=== PATIENT | male | born 1990 | race American Indian/Alaskan Native ===

== ENCOUNTER 2017-03-12 11:07 | Emergency (ER) | payer MEDICAID, OTHER ==
[2017-03-12 11:07] VITALS: BMI 23.3
[2017-03-12 11:11] VITALS: BP 135/86; PULSE 74; RESP 20; TEMP 98.8; O2SAT 98
--- NOTE | 2017-03-12 11:23 | ED PDOC ---
HPI: Psych/Substance Abuse Time Seen by Provider: 03/12/17 11:14 Chief Complaint (Nursing): Psychiatric Evaluation Chief Complaint (Provider): Crisis eval History Per: Patient Modifying Factor(s): Alcohol Additional Complaint(s): 27 yo male, PMH of HIV, Depression and Anxiety, presents to ED feeling very depressed and "like he can't handle life anymore." Pt had a recent break up with his boyfriend, has been having family trouble as well and is overall feeling very overwhelmed. Pt denies any suicidal plan. Denies any homicidal ideations. No physical complaints. (+) AOB. Pt admits to drinking today Past Medical History Reviewed: Nursing Documentation, Vital Signs Vital Signs: Last Vital Signs Temp 98.8 F 03/12/17 11:10 Pulse 74 03/12/17 11:10 Resp 20 03/12/17 11:10 BP 135/86 03/12/17 11:10 Pulse Ox 98 03/12/17 11:10 - Medical History PMH: Dementia, Depression, HIV, Migraine, Multiple Sclerosis, Parkinson's Disease, Seizures, TIA Denies: Alzheimer's Disease, Anemia, Anxiety, Asthma, Atrial Fibrillation, Bipolar Disorder, Bronchitis, Cardia Arrhythmia, CHF, COPD, Diabetes, Emphysema , Hepatitis, HTN, Hypercholesterolemia, Hyperthyroidism, Hypothyroidism, Kidney Stones, Mitral Valve Prolapse, Peripheral Edema, Personality Disorder, Pneumonia , Pulmonary Embolism, Chronic Kidney Disease, Schizophrenia, Sickle Cell Disease , Sexually Transmitted Disease, Sleep Apnea - Surgical History Surgical History: Denies: Appendectomy, CABG, Carotid Endarterectomy, Cholecystectomy, Coronary Stent, Pacemaker, Tonsillectomy - Family History Family History: States: Unknown Family Hx - Living Arrangements Living Arrangements: With Family - Social History Current smoker - smoking cessation education provided: No Alcohol: Social Drugs: Cannabis - Immunization History Hx Tetanus Toxoid Vaccination: No Hx Influenza Vaccination: No Hx Pneumococcal Vaccination: No - Home Medications Home Medications: Ambulatory Orders Medication Instructions Recorded Emtricitabine/Tenofovir Diso 1 tab PO DAILY 07/05/15 [Truvada 200 MG-300 MG] Ritonavir [Norvir] 100 mg PO DAILY 07/05/15 Darunavir [Prezista] 800 mg PO DAILY 09/23/16 Cyclobenzaprine [Cyclobenzaprine 10 mg PO TID #21 tab 07/03/17 HCl] Ibuprofen [Motrin] 600 mg PO Q8 #30 tab 12/24/16 - Allergies Allergies/Adverse Reactions: Allergies Allergy/AdvReac Type Severity Reaction Status Date / Time seasonal Allergy ITCHING Uncoded 03/12/17 11:19 Review of Systems ROS Statement: Except As Marked, All Systems Reviewed And Found Negative Physical Exam - Reviewed Nursing Documentation Reviewed: Yes Vital Signs Reviewed: Yes - Physical Exam Appears: Positive for: Well, Non-toxic, No Acute Distress Head Exam: Positive for: ATRAUMATIC, NORMAL INSPECTION, NORMOCEPHALIC Skin: Positive for: Normal Color, Warm, DRY Eye Exam: Positive for: EOMI, Normal appearance, PERRL ENT: Positive for: Normal ENT Inspection Neck: Positive for: Normal, Painless ROM Cardiovascular/Chest: Positive for: Regular Rate, Rhythm Respiratory: Positive for: CNT, Normal Breath Sounds Gastrointestinal/Abdominal: Positive for: Normal Exam, Bowel Sounds, Soft Back: Positive for: Normal Inspection Extremity: Positive for: Normal ROM Neurologic/Psych: Positive for: Alert, Oriented - Laboratory Results Result Diagrams: 03/12/17 11:39 03/12/17 11:39 - ECG O2 Sat by Pulse Oximetry: 98 Medical Decision Making Medical Decision Making: Labs resulted and reviewed with Pt who demonstrated full understanding. EYOH 225 , Pt to undergo crisis eval at 1400 On re-eval, pt reports nausea, medicated with Zofran 4 mg IM. 1420: P underwent crisis esval, see note. Stable for discharge Disposition - Clinical Impression Clinical Impression: Depression, Alcohol-induced mood disorder - Patient ED Disposition Is Patient to be Admitted: No - Disposition Disposition: Routine/Home Disposition Time: 15:22 Condition: STABLE Instructions: Alcohol Intoxication (ED), Depression (DC) Forms: [facility] (Maltese) - POA Present On Arrival: None
[2017-03-12 11:49] LABS: BASO # 0.1 K/uL (0.0-0.2); BASO % 0.9 % (0.0-2.0); EOS # 0.2 K/uL (0.0-0.7); EOS % 3.2 % (0.0-4.0); HEMATOCRIT 45.7 % (35.0-51.0); LYMPH # 1.9 K/uL (1.0-4.3); LYMPH % 33.5 % (20.0-40.0); MEAN CELL VOLUME 92.2 fl (80.0-94.0); MEAN CORPUSCULAR HEMOGLOBIN 31.2 pg (27.0-31.0); MEAN CORPUSCULAR HGB CONC 33.9 g/dL (33.0-37.0); MEAN PLATELET VOLUME 10.7 fl (7.2-11.7); MONO # 0.4 K/uL (0.0-0.8); MONO % 7.4 % (0.0-10.0); NEUT # 3.2 K/uL (1.8-7.0); NRBC % 0.2 % (0.0-0.0); RED CELL DISTRIBUTION WIDTH 14.4 % (11.5-14.5); WHITE BLOOD COUNT 5.8 K/uL (4.8-10.8)
[2017-03-12 11:58] LABS: ALB/GLOB RATIO 1.3 (1.0-2.1); ALCOHOL SERUM 225 mg/dl (0-10); ALKALINE PHOSPHATASE 67 U/L (38-126); ALT/SGPT 45 U/L (21-72); AST/SGOT 37 U/L (17-59); BILIRUBIN,TOTAL 0.4 mg/dl (0.2-1.3); BLOOD UREA NITROGEN 9 mg/dl (9-20); CALCIUM 9.5 mg/dL (8.4-10.2); CARBON DIOXIDE 30 mmol/L (22-30); CHLORIDE 102 mmol/L (98-107); GFR AFRICAN-AMERICAN > 60; GLUCOSE,RANDOM 100 mg/dL (75-110); POTASSIUM 4.1 MMOL/L (3.6-5.0); SODIUM 145 mmol/l (132-148); TOTAL PROTEIN 8.1 G/DL (6.3-8.2)
[2017-03-12 12:51] LABS: RBC URINE < 1 /hpf (0-3); URINE BILIRUBIN NEGATIVE (NEGATIVE); URINE BLOOD NEGATIVE (NEGATIVE); URINE COLOR YELLOW (YELLOW); URINE GLUCOSE (UA) NEG (Normal); URINE KETONE NEGATIVE (NEGATIVE); URINE LEUKOCYTE ESTERASE NEG Leu/uL (Negative); URINE PROTEIN NEGATIVE (NEGATIVE); URINE UROBILINOGEN 0.2-1.0 mg/dL (0.2-1.0); WBC URINE 1 /hpf (0-5)
== END 2017-03-12 15:22 | disposition home or self-care (01) ==
LOC: H.ER 11:07
DX: F32.9 Major depressive disorder, single episode, unspecified (principal); F10.94 Alcohol use, unspecified with alcohol-induced mood disorder; F03.90 Unspecified dementia, unspecified severity, without behavioral disturbance, psychotic disturbance, mood disturbance, and anxiety; G20 Parkinson's disease; G35 Multiple sclerosis; Z86.73 Personal history of transient ischemic attack (TIA), and cerebral infarction without residual deficits; B20 Human immunodeficiency virus [HIV] disease
CPT/HCPCS: 80053; 80320; 80324; 80329; 80345; 80346; 80349; 80353; 80358; 80361; 81003; 83992; 85025; 96372; 99282; J2405

== ENCOUNTER 2017-11-05 14:37 | Inpatient (IN) | payer MEDICAID, OTHER ==
[2017-11-05 14:37] VITALS: BMI 23.3
[2017-11-05 17:10] LABS: HEMOGLOBIN 15.7 g/dL (12.0-18.0); MEAN CELL VOLUME 92.2 fl (80.0-94.0); MEAN CORPUSCULAR HEMOGLOBIN 31.5 pg (27.0-31.0); MEAN CORPUSCULAR HGB CONC 34.1 g/dL (33.0-37.0); RBC 4.99 Mil/uL (4.40-5.90); RED CELL DISTRIBUTION WIDTH 13.7 % (11.5-14.5)
[2017-11-05 17:28] LABS: ALB/GLOB RATIO 1.2 (1.0-2.1); ALBUMIN 4.3 g/dL (3.5-5.0); ALT/SGPT 42 U/L (21-72); AST/SGOT 27 U/L (17-59); BLOOD UREA NITROGEN 13 mg/dl (9-20); CALCIUM 9.5 mg/dL (8.4-10.2); GFR AFRICAN-AMERICAN > 60; GFR NON-AFRICAN AMERICAN > 60
--- NOTE | 2017-11-05 17:58 | ED PDOC ---
HPI: Psych/Substance Abuse Time Seen by Provider: 11/05/17 15:11 Chief Complaint (Nursing): Psychiatric Evaluation Chief Complaint (Provider): Depression, SI History Per: Patient History/Exam Limitations: no limitations Onset/Duration Of Symptoms: Days Current Symptoms Are (Timing): Still Present Additional Complaint(s): 27 yo male with history of depression presents with SI. Pt states it has been a few days. PT states his plan is to take his pill. Past Medical History Reviewed: Historical Data, Nursing Documentation, Vital Signs Vital Signs: Last Vital Signs Temp 98.8 F 11/05/17 14:45 Pulse 112 H 11/05/17 14:45 Resp 18 11/05/17 14:45 BP 121/71 11/05/17 14:45 Pulse Ox 99 11/05/17 14:45 - Medical History PMH: Dementia, Depression, HIV, Migraine, Multiple Sclerosis, Parkinson's Disease, Seizures, TIA Denies: Alzheimer's Disease, Anemia, Anxiety, Asthma, Atrial Fibrillation, Bipolar Disorder, Bronchitis, Cardia Arrhythmia, CHF, COPD, Diabetes, Emphysema , Hepatitis, HTN, Hypercholesterolemia, Hyperthyroidism, Hypothyroidism, Kidney Stones, Mitral Valve Prolapse, Peripheral Edema, Personality Disorder, Pneumonia , Pulmonary Embolism, Chronic Kidney Disease, Schizophrenia, Sickle Cell Disease , Sexually Transmitted Disease, Sleep Apnea - Surgical History Surgical History: Denies: Appendectomy, CABG, Carotid Endarterectomy, Cholecystectomy, Coronary Stent, Pacemaker, Tonsillectomy - Family History Family History: States: Unknown Family Hx - Living Arrangements Living Arrangements: With Family - Social History Current smoker - smoking cessation education provided: No - Immunization History Hx Tetanus Toxoid Vaccination: No Hx Influenza Vaccination: No Hx Pneumococcal Vaccination: No - Home Medications Home Medications: Ambulatory Orders Medication Instructions Recorded Emtricitabine/Tenofovir Diso 1 tab PO DAILY 07/05/15 [Truvada 200 MG-300 MG] Ritonavir [Norvir] 100 mg PO DAILY 07/05/15 Darunavir [Prezista] 800 mg PO DAILY 09/23/16 Cyclobenzaprine [Cyclobenzaprine 10 mg PO TID #21 tab 12/24/16 HCl] Ibuprofen [Motrin] 600 mg PO Q8 #30 tab 12/24/16 Polyethylene Glycol 3350 [Miralax] 17 gm PO DAILY #1 bottle 07/31/17 - Allergies Allergies/Adverse Reactions: Allergies Allergy/AdvReac Type Severity Reaction Status Date / Time seasonal Allergy Intermediate ITCHING Uncoded 07/31/17 03:24 Review of Systems ROS Statement: Except As Marked, All Systems Reviewed And Found Negative Constitutional: Negative for: Fever, Chills Respiratory: Negative for: Cough Gastrointestinal: Negative for: Nausea, Vomiting, Abdominal Pain Psych: Positive for: Suicidal ideation. Negative for: Psychosis Physical Exam - Reviewed Nursing Documentation Reviewed: Yes Vital Signs Reviewed: Yes - Physical Exam Appears: Positive for: Well, Non-toxic, No Acute Distress Head Exam: Positive for: ATRAUMATIC, NORMAL INSPECTION, NORMOCEPHALIC Skin: Positive for: Normal Color, Warm, DRY Eye Exam: Positive for: Normal appearance ENT: Positive for: Normal ENT Inspection Neck: Positive for: Normal, Painless ROM Cardiovascular/Chest: Positive for: Regular Rate, Rhythm Respiratory: Positive for: Normal Breath Sounds. Negative for: Accessory Muscle Use, Respiratory Distress Back: Positive for: Normal Inspection Extremity: Positive for: Normal ROM Neurologic/Psych: Positive for: Alert, Oriented - Laboratory Results Result Diagrams: 11/05/17 17:02 11/05/17 17:02 - ECG O2 Sat by Pulse Oximetry: 99 Medical Decision Making Medical Decision Making: Crisis evaluation completed. Labs normal. Disposition - Clinical Impression Clinical Impression: Depression - Patient ED Disposition Is Patient to be Admitted: Yes - Disposition Disposition Time: 18:00 Condition: STABLE Instructions: Depression
[2017-11-05 20:37] LABS: URINE BACTERIA RARE (<OCC); URINE BILIRUBIN NEGATIVE (NEGATIVE); URINE BLOOD NEGATIVE (NEGATIVE); URINE CLARITY SLIGHTY-CLOUDY (Clear); URINE COLOR YELLOW (YELLOW); URINE GLUCOSE (UA) NEG (Normal); URINE LEUKOCYTE ESTERASE NEG Leu/uL (Negative); URINE PROTEIN 30 mg/dL (NEGATIVE); URINE UROBILINOGEN 0.2-1.0 mg/dL (0.2-1.0)
[2017-11-05 20:53] LABS: BARBITURATES, UR NEGATIVE (NEGATIVE); BENZODIAZEPINES, UR NEGATIVE (NEGATIVE); OPIATES, UR NEGATIVE (NEGATIVE); PHENCYCLIDINE, UR NEGATIVE (NEGATIVE)
[2017-11-05] MEDS ORDERED: Magnesium Hydroxide Susp 30 ml UD PO PRN (21:43)
[2017-11-05] MEDS ORDERED: DiphenhydrAMINE 50 mg/ml Inj IM PRN (21:43)
[2017-11-05] MEDS ORDERED: Alum-Mag Hydrox-Simethicone Susp (30 mL) PO PRN (21:43)
--- NOTE | 2017-11-05 21:55 | PCM.BM ---
<MunirasavanaNitonuno Cerda - Last Filed: 11/05/17 21:54> Treatment Plan Problems - Problems identified on initial assessmt Suicidal Ideation Date Initiated: 11/05/17 Time Initiated: 21:54 Assessment reference: NA Status: Active Hopelessness/Helplessness Date Initiated: 11/05/17 Time Initiated: 21:54 Assessment reference: NA Status: Active Treatment assets and liabiliti Patient Assests: cooperative, ADL independent, negotiates basic needs, cognitively intact Patient Liabilities: financial problems, poor support system, substance abuse, medical problems - Milieu Protocol Maintain good personal hygiene: daily Encourage regular showers, daily Remind patient to perform daily oral care, daily Assist patient to perform ADL's Conduct patient checks and document Observation sheet: Q15 minutes Maintain personal safety: every shift Educate patient to report safety concerns to staff, every shift Monitor environment for contraband/sharps Medication safety: Monitor for expected outcome, potential side effects: every shift, Assess barriers to learning: every shift, Assess readiness for medication education: every shift <Charlene Whitney - Last Filed: 11/07/17 15:58> Treatment assets and liabiliti Patient Assests: adapts well, cooperative, educated, insightful (regarding depression ; poor insight into ETOH abuse), resourceful, ADL independent, physically healthy (recently noncompliant with HIV medications), good support system, cognitively intact Patient Liabilities: financial problems, relationship conflicts, substance abuse , medical problems, legal issue Family Contact Family contact: Family has been contacted by patient, Patient declines to allow family contact at present - Outside Agency Agency 1 Agency contact name: [facility] Silverio Raul Agency contact number: [phone] Agency 2 Agency contact name: [facility] Agency contact number: [phone] - Goals for Treatment Patient goals for treatment: Patient to continue stabilization on 3NP through medication management and group/supportive therapy. Patient to be encouraged to attend groups regularly to promote self-awareness, sobriety, and improve insight , compliance, coping skills and self-esteem. Patient to be provided with referral for appropriate level of aftercare to reduce risk of future hospitalizations and ensure safety in the community. Discharge/Continuing Care - Education Needs Education Needs: Patient Medication, Patient Coping Skills, Patient Community resources, Patient Aftercare Safety Plan - Discharge Discharge Criteria: Tolerates medication w/o severe side effects, Free of Suicidal thoughts, Normal sleep pattern, Reduction of target symptoms Discharge to:: Home - Treatment Team Participation Discussed with Family/SO: No Was Patient/Family/SO present at Treatment Team Meeting: Yes <Collin Mcclelland - Last Filed: 11/08/17 17:25> Discharge/Continuing Care - Additional Comments 11/08/17 17:25 Pt was very oppositional about taking medication for an extended period of time. Pt reported that he does not feel his marijuana usage is an issue, but spoke openly about his impulse control regarding alcohol and how his binge drinking exacerbates his depression. <Joceline Huizar - Last Filed: 11/11/17 09:44> - Diagnosis (1) Depression Status: Acute Interventions: pharmacotherapy, psychotherapy 11/11/17 09:44
[2017-11-06] MEDS: Pantoprazole 40 mg EC Tab PO SCH (08:47)
[2017-11-06] MEDS: Multivitamin With Minerals Tab PO SCH (08:47)
[2017-11-06 08:58] LABS: T4 6.22 ug/dl (5.5-11.0)
[2017-11-06] MEDS ORDERED: Multivitamin With Minerals Tab PO SCH (09:00)
--- NOTE | 2017-11-06 14:31 | CP.PCM.HP ---
History of Present Illness - History of Present Illness History of Present Illness: 27 y/o M with a PMHx of HIV infection was brought to our hospital due to suicidal attempt. Pt planned to finish with his life by taking all his medication pills at once, pt was stopped by his friend who made him come to the ER. Last suicidal attempt was in 2015 in which he took all his pills at once, pt was hospitalized and re-stabilized. -Pt reports feeling well, denies headache, fever, dizziness, chest pain, SOB, abdominal pain, nausea, vomiting, change in bowel movement. PMD: Dr Fragoso at [facility]. NKDA Medications: -Prezista 800mg; Norvir 100mg; Truvada 200-300mg DAILY -Protonix 40mg daily, Citalopram 20mg daily; Trazodone 50mg nightly PRN; PMHx: HIV infection dx in 2009, Depression. PSHx: denies FHx: NC SHx: Smokes cannabis almost daily, alcohol daily (~1/2 galon), no tobacco. Denies any other rec drugs. Present on Admission - Present on Admission Any Indicators Present on Admission: No Review of Systems - Constitutional Constitutional: absent: Anorexia, Chills, Daytime Sleepiness - EENT Eyes: absent: Blind Spots, Blurred Vision, Change in Vision Nose/Mouth/Throat: absent: Nasal Congestion, Nasal Discharge - Cardiovascular Cardiovascular: absent: Chest Pain, Chest Pain at Rest, Claudication, Dyspnea, Palpitations - Respiratory Respiratory: absent: Cough, Dyspnea, Hemoptysis - Gastrointestinal Gastrointestinal: absent: Abdominal Pain, Bloating, Change in Bowel Habits, Nausea, Temesmus, Vomiting - Genitourinary Genitourinary: absent: Difficulty Urinating, Dysuria, Urinary Frequency - Musculoskeletal Musculoskeletal: absent: Arthralgias, Atrophy, Back Pain - Neurological Neurological: absent: Confusion, Numbness, Syncope Past Patient History - Infectious Disease Hx of Infectious Diseases: None - Tetanus Immunizations Tetanus Immunization: Unknown - Past Medical History & Family History Past Medical History?: Yes - Past Social History Smoking Status: Light Smoker < 10 Cigarettes Daily - CARDIAC Hx Cardiac Disorders: No - PULMONARY Hx Respiratory Disorders: No - NEUROLOGICAL Hx Neurological Disorder: No - HEENT Hx HEENT Problems: No - RENAL Hx Chronic Kidney Disease: No - ENDOCRINE/METABOLIC Hx Endocrine Disorders: No - HEMATOLOGICAL/ONCOLOGICAL Hx Blood Disorders: Yes (HIV) - INTEGUMENTARY Hx Dermatological Problems: No - MUSCULOSKELETAL/RHEUMATOLOGICAL Hx Musculoskeletal Disorders: No - GASTROINTESTINAL Hx Gastrointestinal Disorders: No - GENITOURINARY/GYNECOLOGICAL Hx Genitourinary Disorders: No - PSYCHIATRIC Hx Substance Use: Yes - SURGICAL HISTORY Hx Surgeries: No - ANESTHESIA Hx Anesthesia: No Hx Anesthesia Reactions: No Hx Malignant Hyperthermia: No Meds Allergies/Adverse Reactions: Allergies Allergy/AdvReac Type Severity Reaction Status Date / Time seasonal Allergy Intermediate ITCHING Uncoded 07/31/17 03:24 Physical Exam - Constitutional Appears: Well, No Acute Distress - Head Exam Head Exam: ATRAUMATIC, NORMAL INSPECTION - Eye Exam Eye Exam: EOMI, Normal appearance - ENT Exam ENT Exam: Mucous Membranes Moist, Normal Exam - Neck Exam Neck exam: Positive for: Full Rom. Negative for: Meningismus - Respiratory Exam Respiratory Exam: Clear to Auscultation Bilateral, NORMAL BREATHING PATTERN - Cardiovascular Exam Cardiovascular Exam: REGULAR RHYTHM, +S1, +S2 - GI/Abdominal Exam GI & Abdominal Exam: Distended, Normal Bowel Sounds, Soft. absent: Guarding, Hernia, Organomegaly, Tenderness - Extremities Exam Extremities exam: Positive for: full ROM, normal inspection. Negative for: calf tenderness, joint swelling - Neurological Exam Neurological exam: Alert, Oriented x3 - Psychiatric Exam Psychiatric exam: Normal Affect Results - Vital Signs Recent Vital Signs: Last Vital Signs Temp 99.0 F 11/06/17 09:00 Pulse 100 H 11/06/17 09:00 Resp 18 11/05/17 21:51 BP 135/79 11/06/17 09:00 Pulse Ox 97 11/05/17 21:25 - Labs Result Diagrams: 11/05/17 17:02 11/05/17 17:02 Labs: Laboratory Results - last 24 hr 11/05/17 11/05/17 11/05/17 17:02 17:02 20:22 WBC 6.0 RBC 4.99 Hgb 15.7 Hct 46.0 MCV 92.2 MCH 31.5 H MCHC 34.1 RDW 13.7 Plt Count 201 Sodium 144 Potassium 3.8 Chloride 102 Carbon Dioxide 22 Anion Gap 24 H BUN 13 Creatinine 1.0 Est GFR ( Amer) > 60 Est GFR (Non-Af Amer) > 60 Random Glucose 90 Hemoglobin A1c Calcium 9.5 Total Bilirubin 0.2 AST 27 ALT 42 Alkaline Phosphatase 63 Total Protein 8.0 Albumin 4.3 Globulin 3.7 Albumin/Globulin Ratio 1.2 Triglycerides Cholesterol LDL Cholesterol Direct HDL Cholesterol Thyroxine (T4) TSH 3rd Generation Urine Color Urine Clarity Urine pH Ur Specific Brutus Urine Protein Urine Glucose (UA) Urine Ketones Urine Blood Urine Nitrate Urine Bilirubin Urine Urobilinogen Ur Leukocyte Esterase Urine RBC (Auto) Urine Microscopic WBC Urine Bacteria Urine Opiates Screen Negative Urine Methadone Screen Negative Ur Barbiturates Screen Negative Ur Phencyclidine Scrn Negative Ur Amphetamines Screen Negative U Benzodiazepines Scrn Negative U Oth Cocaine Metabols Negative U Cannabinoids Screen Negative Alcohol, Quantitative 117 H 11/05/17 11/06/17 11/06/17 20:22 08:12 08:12 WBC RBC Hgb Hct MCV MCH MCHC RDW Plt Count Sodium Potassium Chloride Carbon Dioxide Anion Gap BUN Creatinine Est GFR ( Amer) Est GFR (Non-Af Amer) Random Glucose Hemoglobin A1c 5.2 Calcium Total Bilirubin AST ALT Alkaline Phosphatase Total Protein Albumin Globulin Albumin/Globulin Ratio Triglycerides 143 D Cholesterol 157 LDL Cholesterol Direct 78 HDL Cholesterol 49 Thyroxine (T4) 6.22 TSH 3rd Generation 1.41 Urine Color Yellow Urine Clarity Slighty-cloudy Urine pH 6.0 Ur Specific Brutus 1.025 Urine Protein 30 Urine Glucose (UA) Neg Urine Ketones Negative Urine Blood Negative Urine Nitrate Negative Urine Bilirubin Negative Urine Urobilinogen 0.2-1.0 Ur Leukocyte Esterase Neg Urine RBC (Auto) 3 Urine Microscopic WBC < 1 Urine Bacteria Rare Urine Opiates Screen Urine Methadone Screen Ur Barbiturates Screen Ur Phencyclidine Scrn Ur Amphetamines Screen U Benzodiazepines Scrn U Oth Cocaine Metabols U Cannabinoids Screen Alcohol, Quantitative Assessment & Plan - Assessment and Plan (Free Text) Assessment: 27 y/o M with a PMHx of depression and HIV infection admitted for suicidal ideation. Plan: Depression/Alcohol Abuse/Cannabis Use -C/W psychiatry team management HIV controlled -CD4 count 1,571 -HIV VL 2.26 -Pt does not meet AIDS criteria -C/W home meds.
--- NOTE | 2017-11-06 14:42 | CP.PCM.CON ---
History of Present Illness - History of Present Illness History of Present Illness: 27 y/o M with a PMHx of HIV infection was brought to our hospital due to suicidal attempt. Pt planned to finish with his life by taking all his medication pills at once, pt was stopped by his friend who made him come to the ER. Last suicidal attempt was in 2015 in which he took all his pills at once, pt was hospitalized and re-stabilized. -Pt reports feeling well, denies headache, fever, dizziness, chest pain, SOB, abdominal pain, nausea, vomiting, change in bowel movement. PMD: Dr Fragoso at [facility]. NKDA Medications: -Prezista 800mg; Norvir 100mg; Truvada 200-300mg DAILY -Protonix 40mg daily, Citalopram 20mg daily; Trazodone 50mg nightly PRN; -Multivitamins PMHx: HIV infection dx in 2009, Depression. PSHx: denies FHx: NC SHx: Smokes cannabis almost daily, alcohol daily (~1/2 galon), no tobacco. Denies any other rec drugs. Review of Systems - Constitutional Constitutional: absent: Anorexia, Chills, Fever - EENT Eyes: absent: Change in Vision Ears: absent: Ear Pain Nose/Mouth/Throat: absent: Nasal Congestion, Nasal Discharge - Cardiovascular Cardiovascular: absent: Chest Pain, Claudication, Diaphoresis, Palpitations - Respiratory Respiratory: absent: Cough, Dyspnea, Hemoptysis - Genitourinary Genitourinary: absent: Difficulty Urinating, Dysuria, Hematuria, Nocturia - Musculoskeletal Musculoskeletal: absent: Arthralgias, Atrophy, Back Pain Past Patient History - Infectious Disease Hx of Infectious Diseases: None - Tetanus Immunizations Tetanus Immunization: Unknown - Past Medical History & Family History Past Medical History?: Yes - Past Social History Smoking Status: Light Smoker < 10 Cigarettes Daily - CARDIAC Hx Cardiac Disorders: No - PULMONARY Hx Respiratory Disorders: No - NEUROLOGICAL Hx Neurological Disorder: No - HEENT Hx HEENT Problems: No - RENAL Hx Chronic Kidney Disease: No - ENDOCRINE/METABOLIC Hx Endocrine Disorders: No - HEMATOLOGICAL/ONCOLOGICAL Hx Blood Disorders: Yes (HIV) - INTEGUMENTARY Hx Dermatological Problems: No - MUSCULOSKELETAL/RHEUMATOLOGICAL Hx Musculoskeletal Disorders: No - GASTROINTESTINAL Hx Gastrointestinal Disorders: No - GENITOURINARY/GYNECOLOGICAL Hx Genitourinary Disorders: No - PSYCHIATRIC Hx Substance Use: Yes - SURGICAL HISTORY Hx Surgeries: No - ANESTHESIA Hx Anesthesia: No Hx Anesthesia Reactions: No Hx Malignant Hyperthermia: No Meds Allergies/Adverse Reactions: Allergies Allergy/AdvReac Type Severity Reaction Status Date / Time seasonal Allergy Intermediate ITCHING Uncoded 07/31/17 03:24 - Medications Medications: Current Medications Acetaminophen (Tylenol 325mg Tab) 650 mg PO Q4 PRN PRN Reason: pain level 4-7 Al Hydrox/Mg Hydrox/Simethicone (Maalox Plus 30 Ml) 30 ml PO Q4 PRN PRN Reason: Dyspepsia Cyanocobalamin (Vitamin B12 1000 Mcg Tab) 1,000 mcg PO DAILY [facility] Last Admin: 11/06/17 08:48 Dose: 1,000 mcg Diphenhydramine HCl (Benadryl) 50 mg IM Q6 PRN PRN Reason: Extrapyramidal S/S Unable PO Diphenhydramine HCl (Benadryl) 50 mg PO Q6 PRN PRN Reason: Extrapyramidal Symptoms Diphenhydramine HCl (Benadryl) 50 mg PO HS PRN PRN Reason: Sleep Last Admin: 11/05/17 22:41 Dose: 50 mg Folic Acid (Folic Acid) 1 mg PO DAILY [facility] Last Admin: 11/06/17 08:47 Dose: 1 mg Haloperidol (Haldol) 5 mg PO Q4 PRN PRN Reason: Agitation Haloperidol Lactate (Haldol) 5 mg IM Q4 PRN PRN Reason: Agitation, Unable to Take PO Lorazepam (Ativan) 2 mg IM Q4 PRN PRN Reason: Anxiety/Agitation,Unable PO Lorazepam (Ativan) 2 mg PO Q4 PRN PRN Reason: Anxiety/Agitation Lorazepam (Ativan) 1 mg PO TID [facility] Last Admin: 11/06/17 13:11 Dose: 1 mg Magnesium Hydroxide (Milk Of Magnesia) 30 ml PO HS PRN PRN Reason: Constipation Mirtazapine (Remeron) 7.5 mg PO HS [facility] Multivitamins/Minerals (Therapeutic-M Tab) 1 tab PO DAILY [facility] Last Admin: 11/06/17 08:47 Dose: 1 tab Pantoprazole Sodium (Protonix Ec Tab) 40 mg PO DAILY [facility] Last Admin: 11/06/17 08:47 Dose: 40 mg Thiamine HCl (Vitamin B1 Tab) 100 mg PO DAILY [facility] Last Admin: 11/06/17 08:48 Dose: 100 mg Physical Exam - Constitutional Appears: Well, No Acute Distress - Head Exam Head Exam: ATRAUMATIC, NORMAL INSPECTION - Eye Exam Eye Exam: EOMI, Normal appearance - ENT Exam ENT Exam: Mucous Membranes Moist, Normal Exam - Neck Exam Neck exam: Positive for: Normal Inspection - Respiratory Exam Respiratory Exam: Clear to Auscultation Bilateral, NORMAL BREATHING PATTERN - Cardiovascular Exam Cardiovascular Exam: REGULAR RHYTHM, +S1, +S2 - GI/Abdominal Exam GI & Abdominal Exam: Normal Bowel Sounds, Soft. absent: Distended, Firm, Guarding, Tenderness - Extremities Exam Extremities exam: Positive for: full ROM, normal inspection. Negative for: calf tenderness, pedal edema, tenderness - Neurological Exam Neurological exam: Alert, Oriented x3 Results - Vital Signs Recent Vital Signs: Last Vital Signs Temp 99.0 F 11/06/17 09:00 Pulse 100 H 11/06/17 09:00 Resp 18 11/05/17 21:51 BP 135/79 11/06/17 09:00 Pulse Ox 97 11/05/17 21:25 - Labs Result Diagrams: 11/05/17 17:02 11/05/17 17:02 Labs: Laboratory Results - last 24 hr 11/05/17 11/05/17 11/05/17 17:02 17:02 20:22 WBC 6.0 RBC 4.99 Hgb 15.7 Hct 46.0 MCV 92.2 MCH 31.5 H MCHC 34.1 RDW 13.7 Plt Count 201 Sodium 144 Potassium 3.8 Chloride 102 Carbon Dioxide 22 Anion Gap 24 H BUN 13 Creatinine 1.0 Est GFR ( Amer) > 60 Est GFR (Non-Af Amer) > 60 Random Glucose 90 Hemoglobin A1c Calcium 9.5 Total Bilirubin 0.2 AST 27 ALT 42 Alkaline Phosphatase 63 Total Protein 8.0 Albumin 4.3 Globulin 3.7 Albumin/Globulin Ratio 1.2 Triglycerides Cholesterol LDL Cholesterol Direct HDL Cholesterol Thyroxine (T4) TSH 3rd Generation Urine Color Urine Clarity Urine pH Ur Specific Tensed Urine Protein Urine Glucose (UA) Urine Ketones Urine Blood Urine Nitrate Urine Bilirubin Urine Urobilinogen Ur Leukocyte Esterase Urine RBC (Auto) Urine Microscopic WBC Urine Bacteria Urine Opiates Screen Negative Urine Methadone Screen Negative Ur Barbiturates Screen Negative Ur Phencyclidine Scrn Negative Ur Amphetamines Screen Negative U Benzodiazepines Scrn Negative U Oth Cocaine Metabols Negative U Cannabinoids Screen Negative Alcohol, Quantitative 117 H 11/05/17 11/06/17 11/06/17 20:22 08:12 08:12 WBC RBC Hgb Hct MCV MCH MCHC RDW Plt Count Sodium Potassium Chloride Carbon Dioxide Anion Gap BUN Creatinine Est GFR ( Amer) Est GFR (Non-Af Amer) Random Glucose Hemoglobin A1c 5.2 Calcium Total Bilirubin AST ALT Alkaline Phosphatase Total Protein Albumin Globulin Albumin/Globulin Ratio Triglycerides 143 D Cholesterol 157 LDL Cholesterol Direct 78 HDL Cholesterol 49 Thyroxine (T4) 6.22 TSH 3rd Generation 1.41 Urine Color Yellow Urine Clarity Slighty-cloudy Urine pH 6.0 Ur Specific Tensed 1.025 Urine Protein 30 Urine Glucose (UA) Neg Urine Ketones Negative Urine Blood Negative Urine Nitrate Negative Urine Bilirubin Negative Urine Urobilinogen 0.2-1.0 Ur Leukocyte Esterase Neg Urine RBC (Auto) 3 Urine Microscopic WBC < 1 Urine Bacteria Rare Urine Opiates Screen Urine Methadone Screen Ur Barbiturates Screen Ur Phencyclidine Scrn Ur Amphetamines Screen U Benzodiazepines Scrn U Oth Cocaine Metabols U Cannabinoids Screen Alcohol, Quantitative Assessment & Plan - Assessment and Plan (Free Text) Assessment: 27 y/o M with a PMHx of depression and HIV infection admitted for suicidal ideation. Plan: Depression/Alcohol Abuse/Cannabis Use -C/W psychiatry team management HIV controlled -CD4 count 1,571 -HIV VL 2.26 -Pt does not meet AIDS criteria -C/W home meds. - Date & Time Date: 11/06/17 Time: 14:07
--- NOTE | 2017-11-06 15:48 | PCM.PSYCH ---
Initial Psychiatric Evaluation - Initial Psychiatric Evaluation Type of Admission: Voluntary Legal Status: Capacity Chief Complaint (in patient's own words): I am feeling down and I have no hope Patient's Reaction to Hospitalization: pt requested help History of Present Illness and Precipitating Events: pt is 27 ys old male with previous diagnosis of depression and one previous hospitalization, reportedly non compliant with medications but compliant with therapy , pt has been feeling increasingly depressed last month with poor sleep , low energy lack of interest anhedonia on day of hospitalization pt started experiencing suicidal ideation with plan to overdose on HIV medication , came to ER seeking help pt on unit presenting with passive suicidal ideation without active plan, tearful, low energy denied homicidal ideation, denied psychotic symptoms Current Medications: Active Medications Generic Name Dose Route Start Last Admin Trade Name Freq PRN Reason Stop Dose Admin Acetaminophen 650 mg 11/05/17 21:43 Tylenol 325mg Tab PO Q4 PRN pain level 4-7 Al Hydrox/Mg Hydrox/Simethicone 30 ml 11/05/17 21:43 Maalox Plus 30 Ml PO Q4 PRN Dyspepsia Cyanocobalamin 1,000 mcg 11/06/17 09:00 11/06/17 08:48 Vitamin B12 1000 Mcg Tab PO 1,000 mcg DAILY [facility] Administration Diphenhydramine HCl 50 mg 11/05/17 21:43 Benadryl IM Q6 PRN Extrapyramidal S/S Unable PO Diphenhydramine HCl 50 mg 11/05/17 21:43 Benadryl PO Q6 PRN Extrapyramidal Symptoms Diphenhydramine HCl 50 mg 11/05/17 21:46 11/05/17 22:41 Benadryl PO 50 mg HS PRN Administration Sleep Folic Acid 1 mg 11/06/17 09:00 11/06/17 08:47 Folic Acid PO 1 mg DAILY [facility] Administration Haloperidol 5 mg 11/05/17 21:43 Haldol PO Q4 PRN Agitation Haloperidol Lactate 5 mg 11/05/17 21:43 Haldol IM Q4 PRN Agitation, Unable to Take PO Lorazepam 2 mg 11/05/17 21:43 Ativan IM Q4 PRN Anxiety/Agitation,Unable PO Lorazepam 2 mg 11/05/17 21:43 Ativan PO Q4 PRN Anxiety/Agitation Lorazepam 1 mg 11/06/17 09:00 11/06/17 13:11 Ativan PO 1 mg TID JOSEPH Administration Magnesium Hydroxide 30 ml 11/05/17 21:43 Milk Of Magnesia PO HS PRN Constipation Mirtazapine 7.5 mg 11/06/17 22:00 Remeron PO HS [facility] Multivitamins/Minerals 1 tab 11/06/17 09:00 11/06/17 08:47 Therapeutic-M Tab PO 1 tab DAILY [facility] Administration Pantoprazole Sodium 40 mg 11/06/17 09:00 11/06/17 08:47 Protonix Ec Tab PO 40 mg DAILY [facility] Administration Thiamine HCl 100 mg 11/06/17 09:00 11/06/17 08:48 Vitamin B1 Tab PO 100 mg DAILY JOSEPH Administration Past Psychiatric History - Past Psychiatric History Explanation of prior treatment: one previous hospitalization History of ETOH/Drug Use: alcohol use reported Pertinent Medical Hx (Current Medical&Sleep Prob, Allergies): Allergies Allergy/AdvReac Type Severity Reaction Status Date / Time seasonal Allergy Intermediate ITCHING Uncoded 07/31/17 03:24 Emtricitabine/Tenofovir Diso [Truvada 200 MG-300 MG] 1 tab PO DAILY 07/05/15 Ritonavir [Norvir] 100 mg PO DAILY 07/05/15 Darunavir [Prezista] 800 mg PO DAILY 09/23/16 Citalopram Hydrobromide [Celexa] 20 mg PO DAILY 11/05/17 Cyanocobalamin [Vitamin B12 1000 mcg Tab] 1,000 mcg PO DAILY 11/05/17 Folic Acid [Folic Acid] 1 mg PO DAILY 11/05/17 Loratadine/Pseudoephedrine [Claritin-D 24 Hour Tablet] 1 tab PO DAILY 11/05/17 Multivitamin [Multi-Vitamin Daily] 1 tab PO DAILY 11/05/17 Pantoprazole Sodium [Protonix] 40 mg PO DAILY 11/05/17 traZODone [Desyrel] 50 mg PO HS 11/05/17 Mental Status Examination - Personal Presentation Personal Presentation: Looks stated age - Affect Affect: Depressed - Motor Activity Motor Activity: Psychomotor Retardation - Reliability in Providing Information Reliability in Providing Information: Poor, due to altered mood - Speech Speech: Relevant - Mood Mood: Depressed, Anxious - Formal Thought Process Formal Thought Process: Circumstantial - Hallucinations/Delusions Additional comments: denied perceptual disturbances, non elicited - Obsessions/Compulsions Obsessions: No Compulsions: No - Cognitive Functions Orientation: Person, Place Sensorium: Alert Judgement: Imparied, as evidence by: Poor judgement - Risk Risk: Suicidal, Diminished functioning - Strength & Assets Inventory Strength & Assets Inventory: Life experience - Limitations Additional comments: poor compliance DSM 5 DX - DSM 5 DSM 5 Diagnosis: major depression recurrent severe - Recommended/Plan of Treatment Treatment Recommendations and Plan of Treatment: start remeron 7.5mg qhs CBT group and supportive therapy
--- NOTE | 2017-11-06 17:50 | CARD ---
APPROVED REPORT EKG Measurement Heart [id number] <Conclusion> Sinus rhythm with marked sinus arrhythmia Otherwise normal ECG
[2017-11-06] MEDS: Emtricitabine-Tenofovir 200 mg-300 mg Tab PO SCH (18:44)
[2017-11-07 06:16] VITALS: O2SAT 99
[2017-11-07] MEDS: Emtricitabine-Tenofovir 200 mg-300 mg Tab PO SCH (08:55)
[2017-11-07] MEDS: Multivitamin With Minerals Tab PO SCH (08:56)
[2017-11-07] MEDS: Pantoprazole 40 mg EC Tab PO SCH (08:56)
[2017-11-07] MEDS ORDERED: Emtricitabine-Tenofovir 200 mg-300 mg Tab PO SCH (09:00)
--- NOTE | 2017-11-07 14:37 | PCM.PYCHPN ---
Psychiatric Progress Note - Psychiatric Progress Note Patient seen today, length of contact: pt evaluated discussed with team chart reviewed Patient Chief Complaint: I slept better Problems Identified/Issues Discussed: pt evaluated , reported improved sleep with start of remeron, continues to feel down with low energy, motivational therapy provided, discussed with pt the effect of alcohol use on current mental status .pt agreed to start outptient FEDE program on discharge discussed increasing dose of remeron, encouraged to attend groups pt denied any active suicidal ideation on the unit denied perceptual disturbances Medical Problems: one previous hospitalization DSM 5 Symptoms Update: major depression alcohol use disorder Medication Change: Yes (increase remeron) Medical Record Reviewed: Yes Mental Status Examination - Cognitive Function Orientation: Person, Place Attention: WNL Concentration: WNL Association: WNL Fund of Knowledge: WN Decription of patient's judgement and insights: partial insight poor judgment - Mood Mood: Depressed, Anxious - Affect Affect: Constricted, Depressed - Speech Speech: Appropriate - Formal Thought Process Formal Thought Process: Circumstantial Psychotic Thoughts and Behaviors: pt denied perceptual disturbances, non elicited - Suicidal Ideation Suicidal Ideation: No - Homicidal Ideation Homicidal Ideation: No Goal/Treatment Plan - Goal/Treatment Plan Need for Continued Stay: Severe depression anxiety, Discharge may exacerbated symptoms Progress Toward Problem(s) and Goals/Treatment Plan: increase remeron 15mg qhs CBT group and supportive therapy
[2017-11-08] MEDS: Multivitamin With Minerals Tab PO SCH (08:53)
[2017-11-08] MEDS: Emtricitabine-Tenofovir 200 mg-300 mg Tab PO SCH (08:53)
[2017-11-08] MEDS: Pantoprazole 40 mg EC Tab PO SCH (08:54)
--- NOTE | 2017-11-08 14:14 | PCM.PYCHPN ---
Psychiatric Progress Note - Psychiatric Progress Note Patient seen today, length of contact: pt evaluated discussed with team chart reviewed Patient Chief Complaint: I am not ready to stop drinking but I need to reduce it Problems Identified/Issues Discussed: pt evaluated , with treatment team reported improved sleep,also reported better mood feeling less depressed motivational therapy provided, discussed with pt the effect of alcohol and cannabis use on current mental status, pt in precontemplation stage, discussed harm reduction therapy , .pt agreed to start outptient FEDE program on discharge no reported side effects of the medications pt denied any active suicidal ideation denied perceptual disturbances Medical Problems: one previous hospitalization DSM 5 Symptoms Update: major depression alcohol use disorder cannabis use disorder Medication Change: No Medical Record Reviewed: Yes Mental Status Examination - Cognitive Function Orientation: Person, Place Attention: WNL Concentration: WNL Association: WNL Fund of Knowledge: WN Decription of patient's judgement and insights: partial insight poor judgment - Mood Mood: Depressed, Anxious - Affect Affect: Constricted, Depressed - Speech Speech: Appropriate - Formal Thought Process Formal Thought Process: Circumstantial Psychotic Thoughts and Behaviors: pt denied perceptual disturbances, non elicited - Suicidal Ideation Suicidal Ideation: No - Homicidal Ideation Homicidal Ideation: No Goal/Treatment Plan - Goal/Treatment Plan Need for Continued Stay: Severe depression anxiety, Discharge may exacerbated symptoms Progress Toward Problem(s) and Goals/Treatment Plan: remeron 15mg qhs CBT, group, motivational and supportive therapy
[2017-11-09] MEDS: Emtricitabine-Tenofovir 200 mg-300 mg Tab PO SCH (09:00)
[2017-11-09] MEDS: Multivitamin With Minerals Tab PO SCH (09:00)
[2017-11-09] MEDS: Pantoprazole 40 mg EC Tab PO SCH (09:01)
--- NOTE | 2017-11-09 18:07 | PCM.PYCHPN ---
Psychiatric Progress Note - Psychiatric Progress Note Patient seen today, length of contact: pt evaluated discussed with team chart reviewed Patient Chief Complaint: came for etoh mood depression currently receiving gradual down taper of lorazepam for etoh protocol, currently asks questions related to treatment and to be decreased from lorazepam pt reports concerns for possibly needing to take upon discharge Problems Identified/Issues Discussed: alteration in mood alteration in coping substance use etoh Medical Problems: per psychiatry per medicine per nursing per social work per chart Diagnostic Results: per chart DSM 5 Symptoms Update: denies s/s with drawal Medication Change: No Medical Record Reviewed: Yes Consults ordered or reviewed: seen by hospitalist [facility] Mental Status Examination - Cognitive Function Orientation: Person, Place Attention: WNL Concentration: WNL Association: WNL Fund of Knowledge: [facility] Decription of patient's judgement and insights: impaired - Mood Mood: Depressed, Anxious Additional comments: reportedly beginning to be less - Affect Affect: Constricted, Depressed - Speech Speech: Appropriate - Formal Thought Process Formal Thought Process: No Impairment, Circumstantial - Suicidal Ideation Suicidal Ideation: No - Homicidal Ideation Homicidal Ideation: No Goal/Treatment Plan - Goal/Treatment Plan Need for Continued Stay: Severe depression anxiety, Discharge may exacerbated symptoms Progress Toward Problem(s) and Goals/Treatment Plan: inpt milieu adjust meds per status will decrease lorazepam per taper psychoeducation related to mediations and working diagnoses need to see assess who pt is when fully off etoh, no pattern of w/d as delayed s/s may occur will continue remeron review with [facility] pt to consider discharge planning in progress Estimated Date of D/C: 11/14/17 - Smoking Cessation Smoking Cessation Initiated: No Reason for not providing: deferred
[2017-11-10 08:35] VITALS: RESP 18
[2017-11-10] MEDS: Multivitamin With Minerals Tab PO SCH (08:39)
[2017-11-10] MEDS: Emtricitabine-Tenofovir 200 mg-300 mg Tab PO SCH (08:39)
[2017-11-10] MEDS: Pantoprazole 40 mg EC Tab PO SCH (08:40)
--- NOTE | 2017-11-10 17:41 | PCM.PYCHPN ---
Psychiatric Progress Note - Psychiatric Progress Note Patient seen today, length of contact: pt evaluated discussed with team chart reviewed Patient Chief Complaint: pt seen in milieu reports depression is stabilzing, appetite is good, does not believe that he is withdrawing-defers desire or need for lorazepan and no longer wishes to take it, pt reports that last night had difficulty sleeping , reflects that in past has responded to trazodone 100mg (had been prescribed 50mg ) , pt reports that is considering vivitrol Problems Identified/Issues Discussed: alteration in mood alteration in coping substance use etoh Medical Problems: per psychiatry per medicine per nursing per social work per chart Diagnostic Results: per chart DSM 5 Symptoms Update: improving mood denial of w/d difficulty sleeping Medication Change: No Medical Record Reviewed: Yes Consults ordered or reviewed: pt seen by hospitalist Mental Status Examination - Cognitive Function Orientation: Person, Place Attention: WNL Concentration: WNL Association: WNL Fund of Knowledge: [facility] Decription of patient's judgement and insights: impaired - Mood Mood: Depressed, Anxious - Affect Affect: Constricted, Depressed - Speech Speech: Appropriate - Formal Thought Process Formal Thought Process: No Impairment, Circumstantial - Suicidal Ideation Suicidal Ideation: No - Homicidal Ideation Homicidal Ideation: No Goal/Treatment Plan - Goal/Treatment Plan Need for Continued Stay: Severe depression anxiety, Discharge may exacerbated symptoms Progress Toward Problem(s) and Goals/Treatment Plan: inpt milieu adjust meds per status will decrease lorazepam per taper psychoeducation related to mediations and working diagnoses need to see assess who pt is when fully off etoh, no pattern of w/d as delayed s/s may occur-pt wishes to not take lorazepam after psychoeducation and vital signs being stable down taper of lorazepam to be discontinued will continue remeron- review that although took 100mg of trazodone (had been prescribed 50mg ) currently taking remeron to trazodone will be prescribed 50mg po hs prn insomnia review possible increased seditive affect with remeron get up [place] precaution dry mouth possible priaprism-get up slowy review with vivitrol pt to consider pharmacy called medications discussed no interaction with protonix and medications for hiv discharge planning in progress Estimated Date of D/C: 11/14/17 - Smoking Cessation Smoking Cessation Initiated: No Reason for not providing: pt
[2017-11-11] MEDS: Pantoprazole 40 mg EC Tab PO SCH (08:21)
[2017-11-11] MEDS: Emtricitabine-Tenofovir 200 mg-300 mg Tab PO SCH (08:21)
[2017-11-11] MEDS: Multivitamin With Minerals Tab PO SCH (08:21)
[2017-11-11 09:12] VITALS: BP 129/76; PULSE 70; TEMP 98.1
--- NOTE | 2017-11-11 10:32 | CP.PCM.PN ---
Subjective - Date & Time of Evaluation Date of Evaluation: 11/11/17 Time of Evaluation: 09:08 - Subjective Subjective: 27 y/o M seen and examined by bedside. Pt reports feeling well. Pt afebrile, tolerating PO with No acute events overnight. Pt denies fever, headache, dizziness, chest pain, SOB, abdominal pain, nausea, change in bowel movement or urinary complaints. Objective - Vital Signs/Intake and Output Vital Signs (last 24 hours): Temp Pulse Resp BP Pulse Ox 98.1 F 70 18 129/76 99 11/11/17 09:00 11/11/17 09:00 11/11/17 09:00 11/11/17 09:00 11/06/17 22:00 - Medications Medications: Current Medications Acetaminophen (Tylenol 325mg Tab) 650 mg PO Q4 PRN PRN Reason: pain level 4-7 Al Hydrox/Mg Hydrox/Simethicone (Maalox Plus 30 Ml) 30 ml PO Q4 PRN PRN Reason: Dyspepsia Cyanocobalamin (Vitamin B12 1000 Mcg Tab) 1,000 mcg PO DAILY [facility] Last Admin: 11/11/17 08:20 Dose: 1,000 mcg Darunavir (Prezista) 800 mg PO DAILY JOSEPH PRN Reason: Protocol Last Admin: 11/11/17 08:22 Dose: 800 mg Diphenhydramine HCl (Benadryl) 50 mg IM Q6 PRN PRN Reason: Extrapyramidal S/S Unable PO Diphenhydramine HCl (Benadryl) 50 mg PO Q6 PRN PRN Reason: Extrapyramidal Symptoms Diphenhydramine HCl (Benadryl) 50 mg PO HS PRN PRN Reason: Sleep Last Admin: 11/10/17 21:08 Dose: 50 mg Emtricitabine/Tenofovir (Truvada 200 Mg-300 Mg) 1 tab PO DAILY JOSEPH PRN Reason: Protocol Last Admin: 11/11/17 08:21 Dose: 1 tab Folic Acid (Folic Acid) 1 mg PO DAILY [facility] Last Admin: 11/11/17 08:21 Dose: 1 mg Haloperidol (Haldol) 5 mg PO Q4 PRN PRN Reason: Agitation Haloperidol Lactate (Haldol) 5 mg IM Q4 PRN PRN Reason: Agitation, Unable to Take PO Lorazepam (Ativan) 2 mg IM Q4 PRN PRN Reason: Anxiety/Agitation,Unable PO Lorazepam (Ativan) 2 mg PO Q4 PRN PRN Reason: Anxiety/Agitation Magnesium Hydroxide (Milk Of Magnesia) 30 ml PO HS PRN PRN Reason: Constipation Mirtazapine (Remeron) 15 mg PO HS [facility] Last Admin: 11/10/17 21:05 Dose: 15 mg Multivitamins/Minerals (Therapeutic-M Tab) 1 tab PO DAILY [facility] Last Admin: 11/11/17 08:21 Dose: 1 tab Oxymetazoline HCl (Nasal Decongestant 15 Ml) 1 spr NS Q12 PRN PRN Reason: Nasal congestion Last Admin: 11/10/17 21:21 Dose: 1 spr Pantoprazole Sodium (Protonix Ec Tab) 40 mg PO DAILY [facility] Last Admin: 11/11/17 08:21 Dose: 40 mg Ritonavir (Norvir) 100 mg PO DAILY JOSEPH PRN Reason: Protocol Last Admin: 11/11/17 08:21 Dose: 100 mg Thiamine HCl (Vitamin B1 Tab) 100 mg PO DAILY [facility] Last Admin: 11/11/17 08:20 Dose: 100 mg Trazodone HCl (Desyrel) 50 mg PO HS PRN PRN Reason: Insomnia - Labs Labs: 11/05/17 17:02 11/05/17 17:02 - Constitutional Appears: Well, No Acute Distress - Head Exam Head Exam: NORMAL INSPECTION - Eye Exam Eye Exam: EOMI, Normal appearance - ENT Exam ENT Exam: Mucous Membranes Moist - Neck Exam Neck Exam: Full ROM - Respiratory Exam Respiratory Exam: Clear to Ausculation Bilateral, NORMAL BREATHING PATTERN - Cardiovascular Exam Cardiovascular Exam: REGULAR RHYTHM, +S1, +S2 - GI/Abdominal Exam GI & Abdominal Exam: Soft, Normal Bowel Sounds. absent: Guarding, Tenderness, Rebound - Extremities Exam Extremities Exam: Full ROM, Normal Inspection - Neurological Exam Neurological Exam: Alert, Awake, Oriented x3 Assessment and Plan - Assessment and Plan (Free Text) Assessment: 27 y/o M with a PMHx of depression and HIV infection admitted for suicidal ideation. Plan: Depression/Alcohol Abuse/Cannabis Use -C/W psychiatry team management HIV controlled -C/W home meds. DVT prophylaxis. -Ambulation encouraged.
--- NOTE | 2017-11-11 11:38 | PCM.PYCHDC ---
Mental Status Examination - Mental Status Examination Orientation: Person, Place, Situation Memory: Intact Mood: Neutral Affect: Broad Speech: Appropriate Attention: WNL Concentration: WNL Association: WNL Fund of Knowledge: WNL Formal Thought Process: No Impairment Description of patient's judgement and insight: partial insight poor judgment Psychotic Thoughts and Behaviors: pt denied perceptual disturbances, non elicited Suicidal Ideation: No Current Homicidal Ideation?: No Discharge Summary - Discharge Note Reason for Hospitalization: pt is 27 ys old male with previous diagnosis of depression and one previous hospitalization, reportedly non compliant with medications but compliant with therapy , pt has been feeling increasingly depressed last month with poor sleep , low energy lack of interest anhedonia on day of hospitalization pt started experiencing suicidal ideation with plan to overdose on HIV medication , came to ER seeking help pt on unit presenting with passive suicidal ideation without active plan, tearful, low energy denied homicidal ideation, denied psychotic symptoms Consultations:: List each consultation separately and include: 1. Reason for request. 2. Findings. 3. Follow-up Summary of Hospital Course include:: 1. Description of specific treatment plan utilized for patients during their course of treatmen. 2. Summarize the time- course for resolution of acute symptoms and/or regressed behaviors. 3. Describe issues identified and worked on during hospitalization. 4. Describe medication utilized. 5. Describe medical problems identified and treated. 6. Reassessment of suicide risk Summary of Hospital Course: pt on admission presented with depressed mood poor appetite and insomnia, pt was started on remeron 7.5mg qnd was uptitrated to 15mg qhs motivational therapy provided in reference to cannabis and alcohol abuse, pt was advised about the maintenance treament available including vivitrol shot pt gradually presented with brighter mood and affect, no reported side effects of medications on discharge, mental status was stable pt denied any current suicidal or homicidal ideation follow up was arranged by social science teacher at [employer] outpatient [facility]/ [employer] - Diagnosis (1) Depression Current Visit: Yes Status: Acute Comment: psyche is managing - Final Diagnosis (DSM 5) Condition upon Discharge: STABLE DSM 5: major depression recurrent severe without psychotic features alcohol use disorder cannabis use disorder Disposition: HOME/ ROUTINE Prescriptions/Medication Reconciliation: Mirtazapine [Remeron] 15 mg PO HS 30 Days #30 tab traZODone [Desyrel] 50 mg PO HS PRN 30 Days #30 tab PRN Reason: Insomnia - Antipsychotic Medications Pt discharged on 2 or more routine antipsychotic medications: No
== END 2017-11-11 15:23 | disposition home or self-care (01) | DRG 430 ==
LOC: H.ER 14:37 → H.ERHOLD 17:58 → H.PSYCH 21:42
PROVIDERS: ADMIT Psychiatry & Neurology Psychiatry; ATTEND Psychiatry & Neurology Psychiatry
PROC: GZHZZZZ Group Psychotherapy (ICD-10-PCS; principal; 2017-11-06)
PROC: GZ51ZZZ Individual Psychotherapy, Behavioral (ICD-10-PCS; 2017-11-06)
DX: F33.2 Major depressive disorder, recurrent severe without psychotic features (principal); G35 Multiple sclerosis; R56.9 Unspecified convulsions; F03.90 Unspecified dementia, unspecified severity, without behavioral disturbance, psychotic disturbance, mood disturbance, and anxiety; G20 Parkinson's disease; G47.00 Insomnia, unspecified; Z86.73 Personal history of transient ischemic attack (TIA), and cerebral infarction without residual deficits; Z87.891 Personal history of nicotine dependence; Z91.14 Patient's other noncompliance with medication regimen; G43.909 Migraine, unspecified, not intractable, without status migrainosus; R45.851 Suicidal ideations; R63.0 Anorexia; Z21 Asymptomatic human immunodeficiency virus [HIV] infection status; F10.10 Alcohol abuse, uncomplicated; F12.90 Cannabis use, unspecified, uncomplicated; Y90.5 Blood alcohol level of 100-119 mg/100 ml

== ENCOUNTER 2018-03-31 12:31 | Emergency (ER) | payer OTHER ==
[2018-03-31 12:31] VITALS: BMI 23.3
[2018-03-31 13:26] VITALS: BP 126/87; PULSE 70; RESP 18; TEMP 98.7; O2SAT 100
--- NOTE | 2018-03-31 13:54 | ED PDOC ---
HPI: General Adult Time Seen by Provider: 03/31/18 13:53 Chief Complaint (Nursing): Abnormal Skin Integrity Chief Complaint (Provider): itchiness History Per: Patient Additional Complaint(s): 28-year-old male presents with generalized itchiness for 3 days. Patient denies any rash or lesions. He states the last time he had symptoms like this he was treated for scabies. Patient denies any known exposure to any allergens. No associated fever or chills. Patient denies recent change in lotions, soaps, detergents, medications, vitamins or supplements. Patient states hands and feet are the most pruritic and he states the symptoms are worse at night. MD: Dr. Fragoso Past Medical History Reviewed: Historical Data, Nursing Documentation, Vital Signs Vital Signs: Last Vital Signs Temp 98.7 F 03/31/18 13:23 Pulse 70 03/31/18 13:23 Resp 18 03/31/18 13:23 BP 126/87 03/31/18 13:23 Pulse Ox 100 03/31/18 13:23 - Medical History PMH: Depression, HIV, Migraine - Surgical History Surgical History: No Surg Hx - Family History Family History: States: No Known Family Hx - Living Arrangements Living Arrangements: With Family - Social History Current smoker - smoking cessation education provided: No Alcohol: None Drugs: Denies - Home Medications Home Medications: Ambulatory Orders Medication Instructions Recorded Emtricitabine/Tenofovir Diso 1 tab PO DAILY 07/05/15 [Truvada 200 MG-300 MG] Ritonavir [Norvir] 100 mg PO DAILY 07/05/15 Darunavir [Prezista] 800 mg PO DAILY 09/23/16 Cyanocobalamin [Vitamin B12 1000 1,000 mcg PO DAILY 11/05/17 mcg Tab] Folic Acid 1 mg PO DAILY 11/05/17 Loratadine/Pseudoephedrine 1 tab PO DAILY 11/05/17 [Claritin-D 24 Hour Tablet] Multivitamin [Multi-Vitamin Daily] 1 tab PO DAILY 11/05/17 Pantoprazole Sodium [Protonix] 40 mg PO DAILY 11/05/17 Folic Acid 1 mg PO DAILY #0 tab 11/11/17 Mirtazapine [Remeron] 15 mg PO HS 30 Days #30 tab 11/11/17 Multimineral/Multivitamin 1 tab PO DAILY tab 11/11/17 [Therapeutic-M Tab] Thiamine [Vitamin B1 Tab] 100 mg PO DAILY tab 11/11/17 traZODone [Desyrel] 50 mg PO HS PRN 30 Days #30 tab 11/11/17 Permethrin 1% Kit [Nix Complete 59 ml TP ONCE #1 bottle 03/31/18 Lice Elimination Kit 1%] hydrOXYzine HCl [Atarax] 25 mg PO Q6H PRN #30 tab 03/31/18 - Allergies Allergies/Adverse Reactions: Allergies Allergy/AdvReac Type Severity Reaction Status Date / Time seasonal Allergy Intermediate ITCHING Uncoded 07/31/17 03:24 Review of Systems ROS Statement: Except As Marked, All Systems Reviewed And Found Negative Constitutional: Negative for: Fever Skin: Positive for: Other (itchiness to skin) Physical Exam - Reviewed Nursing Documentation Reviewed: Yes Vital Signs Reviewed: Yes - Physical Exam Appears: Positive for: Well, Non-toxic, No Acute Distress Skin: Positive for: Normal Color. Negative for: Rash Eye Exam: Positive for: Normal appearance Cardiovascular/Chest: Positive for: Regular Rate, Rhythm Respiratory: Positive for: Normal Breath Sounds. Negative for: Wheezing, Respiratory Distress Extremity: Positive for: Normal ROM Neurologic/Psych: Positive for: Alert, Oriented - ECG O2 Sat by Pulse Oximetry: 100 Pulse Ox Interpretation: Normal Medical Decision Making Medical Decision Makin-year-old male with generalized pruritus. Patient is well-appearing, no rashes noted. Patient states the last time he had generalized pruritus he was treated for scabies. Prescription for permethrin cream provided along with prescription for Atarax. Patient was advised to follow up with PMD in 2-3 days. Disposition - Clinical Impression Clinical Impression: Pruritus - Patient ED Disposition Is Patient to be Admitted: No Counseled Patient/Family Regarding: Diagnosis, Need For Followup, Rx Given - Disposition Referrals: Deniz Fragoso MD [Family Provider] - Disposition: Routine/Home Disposition Time: 15:17 Condition: STABLE Additional Instructions: Take prescription meds as directed. Follow-up with primary doctor or dust collector attendant for any persistent symptoms. Prescriptions: hydrOXYzine HCl [Atarax] 25 mg PO Q6H PRN #30 tab PRN Reason: Itching / Pruritus Permethrin 1% Kit [Nix Complete Lice Elimination Kit 1%] 59 ml TP ONCE #1 bottle Instructions: Itchy Skin Forms: [facility] (Slovenian)
== END 2018-03-31 15:26 | disposition home or self-care (01) ==
LOC: H.ER 12:31
DX: L29.9 Pruritus, unspecified (principal)